=== PATIENT | male | born 1975 | race Caucasian/White ===

== ENCOUNTER → 2017-04-08 12:44 | Outpatient (CLI) | payer MEDICAID ==
[2016-01-30 10:19] VITALS: BMI 41.9
[~2017-04-08 12:44] MED LIST: CYCLOBENZAPRINE10 MG PO; OMEPRAZOLE20 M1 PO; OXY IR30 MG PO; VIMOVO 500-201 EACH PO
== END | disposition home or self-care (01) ==
LOC: D.RAD 03-30 09:00 → D.CT 03-31 08:30 → D.RAD 03-31 08:30 → D.CT 03-31 09:30 → D.RAD 12:44
DX: T84.84XA Pain due to internal orthopedic prosthetic devices, implants and grafts, initial encounter (principal)

== ENCOUNTER 2017-05-12 07:31 | Day surgery (SDC) | payer MEDICAID ==
[~2017-05-12] VITALS: Ht 180.3 cm; Wt 99.8 kg
[~2017-05-12 07:31] MED LIST changes: +GLUCOPHAGE500 MG PO; +GLUCOTROL ER2.5 MG PO; +LIDOCAINE 5 % O35 GM TOPICAL; +NEURONTIN250 MG/5 M
[2017-05-12 08:18] LABS: HEMATOCRIT 38.8 % (42.0-54.0); HEMOGLOBIN 13.2 g/dL (13.5-17.5); MCH 31.5 pg (26.0-34.0); MCV 92.6 fL (80.0-100.0); MEAN PLATELET VOLUME 9.8 fL (7.4-10.4); RBC 4.19 10x6/uL (4.20-6.10); RDW 12.1 % (11.5-14.5); WBC 8.5 10x3/uL (4.8-10.8)
[2017-05-12 08:20] VITALS: BP 122/68; Ht 180.3 cm; Wt 99.8 kg
[2017-05-12] MEDS ORDERED: ARTHROTEC 501 TAB.EC PO (08:20)
[2017-05-12 08:29] LABS: CALC OSMOLALITY 286 mosm/kg (275-300); CALCIUM 8.5 mg/dL (8.5-10.1); CARBON DIOXIDE 26.8 mmol/L (21.0-32.0); CHLORIDE - SERUM 109 mmol/L (98-107); CREATININE - SERUM 1.1 mg/dL (0.6-1.3); GLUCOSE 123 mg/dL (74-106); POTASSIUM - SERUM 3.9 mmol/L (3.5-5.1); SODIUM 143 mmol/L (136-145); UREA NITROGEN 14 mg/dL (7-18); eGFR NON AFRICAN AMERICAN 78 mL/min (90-120)
--- NOTE | 2017-05-12 08:55 | NUR ---
0855 PATIENT REFUSED TO TAKE TYLENOL DUE TO STOMACH ISSUES
[2017-05-12] MEDS ORDERED: HYDROCODONE-APA1 TAB PO ×2 (11:52→11:53)
--- NOTE | 2017-05-12 14:15 | NUR ---
1330 IV DC WITH CATHER TIP INTACT
--- NOTE | 2017-05-12 14:30 | NUR ---
STILL WAITING ON RUDDER TO CHANGE RX
--- NOTE | 2017-06-13 17:27 | OP ---
PATIENT NAME: HONORIO MILLER MEDICAL RECORD: [id number] :75 LOCATION:[facility] ADMISSION DATE: SURGEON: DAVID SHULTZ MD DATE OF OPERATION: 05/12/2017 PREOPERATIVE DIAGNOSIS: Painful left shoulder hardware. POSTOPERATIVE DIAGNOSIS: Painful left shoulder hardware. PROCEDURE: Removal of painful left shoulder hardware. SURGEON: David Shultz MD. ANESTHESIA: General. INTRAOPERATIVE COMPLICATIONS: None. SUMMARY OF PATHOLOGIC FINDINGS: Essentially none. The shoulder hardware was perhaps a bit proud, but the fracture was well healed. OPERATIVE SUMMARY IN DETAIL: After obtaining the appropriate preoperative orthopedic surgery consent as well as anesthetic consultation, evaluation and clearance, the patient was brought to the operating room and placed on the operating table in supine position. After adequate general laryngeal mask was administered, the patient was placed in the beach chair position. All pressure points were well padded. He was held firmly to the operating table using the vacuum pack suction system. Previously utilized incision was utilized again. A care was taken to avoid neurovascular structures. The plate was dissected free on its entirety and serial and sequential removal of the hardware was done followed by removal of the plane. Wound was then copiously irrigated. The deltoid fascia was closed with #1 Vicryl. This was followed by 2-0 Vicryl and skin gale. Sterile dressings were applied. The patient was awakened, taken to recovery room in stable condition. All final needle and sponge counts were correct. TRANSINT:[id number] Voice Confirmation ID: [id number] DOCUMENT ID: [id number] DAVID SHULTZ MD at 1727 CC: [id number] DICTATION DATE: 06/13/17 1057 BUSINESS TRAVEL CONSULTANT: 06/13/17 1208 [facility] 05/12/17 [place] [id number] [place] [id number]
== END 2017-05-12 14:31 | disposition home or self-care (01) ==
LOC: D.OPS 07:31 → D.PAN 11:45 → D.OPS 12:15 → D.PAN 16:30
PROVIDERS: Anesthesiology
DX: T84.9XXA Unspecified complication of internal orthopedic prosthetic device, implant and graft, initial encounter (principal); F17.200 Nicotine dependence, unspecified, uncomplicated; E11.9 Type 2 diabetes mellitus without complications; K21.9 Gastro-esophageal reflux disease without esophagitis; E66.9 Obesity, unspecified; Z68.30 Body mass index [BMI] 30.0-30.9, adult; Z01.812 Encounter for preprocedural laboratory examination

== ENCOUNTER → 2017-07-12 08:40 | Outpatient (CLI) | payer MEDICAID ==
[2017-05-12 08:20] VITALS: BMI 30.7
[~2017-07-12 08:40] MED LIST changes: +ARTHROTEC 501 TAB.EC PO; +HYDROCODONE-APA1 TAB PO
== END | disposition home or self-care (01) ==
LOC: D.MRI 07-07 10:30
DX: S83.231A Complex tear of medial meniscus, current injury, right knee, initial encounter (principal)

== ENCOUNTER → 2018-03-28 13:36 | Outpatient (CLI) | payer MEDICAID ==
[2017-05-12 08:20] VITALS: BMI 30.7
[2018-03-28 14:30] LABS: BASOPHILS 0.3 % (0-2); HEMATOCRIT 42.4 % (42.0-54.0); HEMOGLOBIN 14.7 g/dL (13.5-17.5); IMMATURE GRANULOCYTES 0.2 % (0-5); LYMPHOCYTES 22.6 % (15-50); MCH 31.8 pg (26.0-34.0); MCHC 34.7 g/dL (31.0-37.0); MCV 91.8 fL (80.0-100.0); MEAN PLATELET VOLUME 10.4 fL (7.4-10.4); NEUTROPHILS 68.9 % (40-80); PLATELET COUNT 200 10x3/uL (130-400); RBC 4.62 10x6/uL (4.20-6.10); RDW 12.7 % (11.5-14.5); WBC 10.6 10x3/uL (4.8-10.8)
[2018-03-28 14:45] LABS: C-REACTIVE PROTEIN 0.3 mg/dL (0.0-0.9); URIC ACID 5.3 mg/dL (2.6-7.2)
[2018-03-28 15:55] LABS: ERYTHROCYTE SEDIMENTATION RATE 8 mm/hr (0-15)
== END | disposition home or self-care (01) ==
LOC: D.LABREF 13:36
PROVIDERS: Orthopaedic Surgery
DX: M25.512 Pain in left shoulder (principal)

== ENCOUNTER 2018-06-29 08:10 | Day surgery (SDC) | payer MEDICAID ==
[2018-06-28 09:14] LABS: HEMOGLOBIN 13.4 g/dL (13.5-17.5); MCH 32.1 pg (26.0-34.0); MCHC 34.4 g/dL (31.0-37.0); MCV 93.5 fL (80.0-100.0); MEAN PLATELET VOLUME 9.7 fL (7.4-10.4); RBC 4.17 10x6/uL (4.20-6.10); RDW 12.9 % (11.5-14.5); WBC 10.8 10x3/uL (4.8-10.8)
[2018-06-28 09:36] LABS: CALC OSMOLALITY 280 mosm/kg (275-300); CALCIUM 8.5 mg/dL (8.5-10.1); CARBON DIOXIDE 30.4 mmol/L (21.0-32.0); CHLORIDE - SERUM 104 mmol/L (98-107); CREATININE - SERUM 0.8 mg/dL (0.6-1.3); GLUCOSE 121 mg/dL (74-106); POTASSIUM - SERUM 4.2 mmol/L (3.5-5.1); SODIUM 140 mmol/L (136-145); UREA NITROGEN 14 mg/dL (7-18); eGFR NON AFRICAN AMERICAN > 90 mL/min (90-120)
[~2018-06-29] VITALS: Ht 180.3 cm; Wt 120.2 kg
--- NOTE | ~2018-06-29 | OP ---
PATIENT NAME: HONORIO MILLER MEDICAL RECORD: [id number] :75 LOCATION:[facility] ADMISSION DATE: SURGEON: DAVID SHULTZ MD DATE OF OPERATION: 06/29/2018 PREOPERATIVE DIAGNOSIS: Retained painful hardware, left hand ring finger. POSTOPERATIVE DIAGNOSIS: The pin had fallen out between the clinic and the OR today. PROCEDURE: None. SURGEON: David Shultz MD ANESTHESIA: General. INDICATIONS: Mr. Miller is a 42-year-old gentleman who had had a crush injury to his hand several years ago. He came to my clinic with a pin protruding from the skin that was very painful, yet it was not removable at the time. He was scheduled for pin removal under anesthesia per his request. He was brought in today and the pin was not protruding out of the skin. We went to the operating room, and under fluoroscopy, the pin had fallen out already. His report was that it went back into his skin. There was no evidence of infection and no evidence of foreign body, so no surgery was done. OPERATIVE SUMMARY IN DETAIL: After obtaining the appropriate preoperative orthopaedic surgery consent as well as anesthetic consultation, evaluation, and clearance, the patient was brought to the operating room and placed on the operating table in the supine position. After general laryngeal mask was administered, tourniquet was placed about the proximal aspect of the left upper extremity. Left upper extremity was then prepped and draped in routine sterile fashion. Arm was elevated, exsanguinated, and tourniquet was inflated to 250 mmHg. At this point, fluoroscopy was brought in, and on all planes, there was no hardware seen in any portion of the arm, hand, or finger. I immediately went to PACS system and looked up his x-rays from his clinic appointment 10-14 days prior and there was clearly a pin in his finger. At this point, case was terminated. Tourniquet was deflated. The patient was awakened and taken to recovery room in stable condition. I discussed the findings with his . Although the patient thought the pin went back in his finger, it must have fallen out. TRANSINT:[id number] Voice Confirmation ID: [id number] DOCUMENT ID: [id number] CARRINGTON DUNN, DAVID GRECO at 1822 CC: [id number] DICTATION DATE: 06/29/18 1007 WOMEN'S APPAREL SALESPERSON: 06/29/18 1204 [facility] [place] 06/29/18 [facility] [address] [place] [address]
[~2018-06-29 08:10] MED LIST changes: +MOBIC7.5 MG PO
[2018-06-29 08:44] VITALS: BP 135/89; Ht 180.3 cm; Wt 120.2 kg
== END 2018-06-29 11:30 | disposition home or self-care (01) ==
LOC: D.OPS 08:10 → D.PAN 11:30 → D.OPS 11:30 → D.PAN 14:00
PROVIDERS: Anesthesiology
DX: T84.84XA Pain due to internal orthopedic prosthetic devices, implants and grafts, initial encounter (principal); Z01.812 Encounter for preprocedural laboratory examination; Z53.8 Procedure and treatment not carried out for other reasons

== ENCOUNTER → 2019-02-20 10:05 | Outpatient (CLI) | payer MEDICAID ==
[~2019-02-20 10:05] MED LIST changes: +LISINOPRIL10 MG PO
== END | disposition home or self-care (01) ==
LOC: D.MRI 10:05
DX: M54.2 Cervicalgia (principal)

== ENCOUNTER 2019-04-19 05:35 | Day surgery (SDC) | payer MEDICAID ==
--- NOTE | 2019-04-17 11:30 | NUR ---
DR. REESE NOTIFIED AND REVIEWED PT'S BEHAVIOR AND ASSESSMENT RESULTS. PT IS A LOW RISK PER DR. REESE. DR. REESE STATED TO GIVE RESOURCES TO PT AT TIME OF DISCHARGE. NO FURTHER ORDERS AT THIS TIME. RESOURCES REVIEWED WITH PT AND HE VERBALIZED UNDERSTANDING.
[2019-04-17 12:02] LABS: HEMATOCRIT 41.3 % (42.0-54.0); HEMOGLOBIN 14.3 g/dL (13.5-17.5); MCH 31.6 pg (26.0-34.0); MCHC 34.6 g/dL (31.0-37.0); MCV 91.2 fL (80.0-100.0); MEAN PLATELET VOLUME 9.5 fL (7.4-10.4); RBC 4.53 10x6/uL (4.20-6.10); RDW 12.9 % (11.5-14.5); WBC 11.8 10x3/uL (4.8-10.8)
[2019-04-17 12:35] LABS: CALC OSMOLALITY 284 mosm/kg (275-300); CALCIUM 9.3 mg/dL (8.5-10.1); CARBON DIOXIDE 27.4 mmol/L (21.0-32.0); CHLORIDE - SERUM 102 mmol/L (98-107); CREATININE - SERUM 0.8 mg/dL (0.6-1.3); GLUCOSE 130 mg/dL (74-106); POTASSIUM - SERUM 3.6 mmol/L (3.5-5.1); SODIUM 141 mmol/L (136-145); UREA NITROGEN 19 mg/dL (7-18); eGFR NON AFRICAN AMERICAN > 90 mL/min (90-120)
[~2019-04-19] VITALS: Ht 180.3 cm; Wt 125.2 kg
[2019-04-19] VITALS (19 sets, daily range): BP systolic 106–136; BP diastolic 69–91; Ht 180.3 cm; Wt 125.2 kg
[2019-04-19] MEDS ORDERED: CYCLOBENZAPRINE10 MG PO (06:25)
--- NOTE | 2019-04-19 12:37 | NUR ---
REPORT RECEIVED. PATIENT ASSESSMENT COMPLETED. PATIENT ON 2 L NC. VITAL SIGNS STABLE. WILL CONTINUE ICE CHIPS. BED LOW AND LOCKED IN POSITION. [facility] WILL CONTINUE TO MONITOR.
--- NOTE | 2019-04-19 15:34 | NUR ---
PATIENT SEDATED. ORAL CARE PROVIDED. COMPLETE LINEN CHANGE. PATIENT TURNED AND COMPLETE BATH. ALL TUBING SIGNED AND DATED. ALL IV SITES SIGNED AND DATED. VSS. WILL CONTINUE TO MONITOR.
--- NOTE | 2019-04-19 17:04 | NUR ---
PATIENT EATING DINNER. PATIENT TOLERATED CLEAR LIQUID. PATIENT CONSUMED 600ML. PATIENT STATES O/10 PAIN. PATIENT IS ALERT AND ORIENTED X4. SHIFT REASSESMENT COMPLETED AND NO CHANGES NOTED. VSS. BED LOW AND LOCKED IN POSITION. REMINDED PATIENT TO NOT LIFT OR TURN NECK. WILL CONTINUE TO MONITOR.
--- NOTE | 2019-04-19 19:00 | NUR ---
REPORT RECEIVED, CARE ASSUMED. PT IS LAYING IN BED AT THIS TIME WITH EYES CLOSED. NO NEEDS VOICED/NOTED. INITIAL ASSESSMENT COMPLETED, SEE FLOWSHEET FOR DETAILS. NO SIGNS OF ACUTE DISTRESS. WILL CONTINUE TO MONITOR.
--- NOTE | 2019-04-19 21:00 | NUR ---
PT IS RESTING IN BED WITH EYES CLOSED. NO SIGNS OF ACUTE DISTRESS. NO NEEDS VOICED AT THIS TIME. WILL CONTINUE TO MONITOR.
--- NOTE | 2019-04-19 23:00 | NUR ---
REASSESSMENT COMPLETED, SEE FLOWSHEET FOR DETAILS. PT IS LAYING IN BED WITH EYES CLOSED AT THIS TIME. NO SIGNS OF ACUTE DISTRESS. WILL CONTINUE TO MONITOR.
[2019-04-20] VITALS (7 sets, daily range): BP systolic 101–128; BP diastolic 73–85
--- NOTE | 2019-04-20 01:00 | NUR ---
PT IS LAYING IN BED WITH EYES CLOSED AT THIS TIME. PT DENIES NEEDS. NO SIGNS OF ACUTE DISTRESS NOTED. WILL CONTINUE TO MONITOR.
--- NOTE | 2019-04-20 03:00 | NUR ---
REASSESSMENT COMPLETED, SEE FLOWSHEET FOR DETAILS. PT IS LAYING IN BED WITH EYES CLOSED AT THIS TIME. NO SIGNS OF ACUTE DISTRESS. WILL CONTINUE TO MONITOR.
--- NOTE | 2019-04-20 05:00 | NUR ---
PT IS LAYING IN BED WITH EYES CLOSED AT THIS TIME. NO SIGNS OF ACUTE DISTRESS. WILL CONTINUE TO MONITOR.
--- NOTE | 2019-04-20 07:31 | NUR ---
REPORT RECIEVED. PATIENT ALERT AND ORIENTED X4. ASSESSMENT COMPLETED. PATIENT RATED PAIN OF 2/10. PATIENT REQUESTED MED FOR PAIN RELIEF. BED LOW AND LOCKED IN POSITION. CALL LIGHT WITHIN REACH.
--- NOTE | 2019-04-20 09:00 | NUR ---
DR HE AT [facility] DISCHARGE ORDERS GIVEN
--- NOTE | 2019-04-20 10:14 | NUR ---
PATIENT DISCHARGED WITH
--- NOTE | 2019-05-10 13:38 | OP ---
PATIENT NAME: HONORIO MILLER MEDICAL RECORD: [id number] :75 LOCATION:[facility] ADMISSION DATE: SURGEON: NADER HE MD DATE OF OPERATION: 04/19/2019 PREOPERATIVE DIAGNOSES: Osteophyte formation and disc herniation at C5-C6 and C6-C7, cervical. POSTOPERATIVE DIAGNOSES: Osteophyte formation and disc herniation at C5-C6 and C6-C7, cervical. PROCEDURES: Anterior cervical discectomy and fusion at C5-C6 and C6-C7 with removal of osteophytes and decompression of the C6 and C7 nerve roots bilaterally. PEEK interbody cages, separate anterior cervical plate and screws, Madai bone stem cells allograft. DESCRIPTION OF TECHNIQUE: After induction of general endotracheal anesthesia, the patient was positioned supine on the operating table. Neck was prepped and draped in usual sterile fashion. Fluoroscopic x-ray and freer localized the C5-C6 interspace. After infiltration of 1:100,000 epinephrine with 1% lidocaine, a transverse skin incision was carried out from the midline to the sternocleidomastoid muscle. The platysma was divided with Bovie cautery. Using blunt and sharp dissection with Metzenbaum scissors, I proceeded in avascular plane medial to the carotid sheath. The C5-C6 interspace was identified with fluoroscopic x-ray and a spinal needle. The longus colli muscles were elevated by the C5, C6, and C7. Self-retaining retractors were placed deep to the longus colli muscles. [place] distracting pins were placed by the C5, C6, and C7. Disc material was removed from C5-C6 and C6-C7 with a combination of pituitary rongeurs and curettes. Osteophytes were drilled away posteriorly at C5-C6 and C6-C7 under microscopic illumination. A 2-mm Cloward rongeur was used to remove the posterior longitudinal ligament. Following this, the dura was decompressed well. A separate PEEK interbody cage was placed in each interspace of C5-C6 and C6-C7. Prior to this, it was filled with Madai Bone allograft. Next, a separate anterior cervical plate and screws was used to span the C5, C6 and C7 interspaces. Self-drilling screws were placed through the holes in the plate. Locking cams were tightened down over the screw heads. Good position of the hardware was confirmed with fluoroscopic x-ray. Meticulous hemostasis was maintained throughout the wound. The wound was irrigated with copious amounts of Ancef irrigant solution. The platysma was closed with interrupted 2-0 Vicryl suture. The subdermal layer was closed with 3-0 Vicryl suture. The skin was reapproximated with Steri-Strips and benzoin. A sterile dressing was applied to the wound. The patient was awakened in good condition and taken to recovery. All counts were reported as correct. Estimated blood loss was minimal. TRANSINT:[id number] Voice Confirmation ID: [id number] DOCUMENT ID: [id number] NADER HE MD at 1338 CC: [id number] DICTATION DATE: 05/09/19 1445 CORE FINISHER: 05/09/19 1610 [facility] 04/20/19 [place] [id number] [place] [address]
== END 2019-04-20 10:16 | disposition home or self-care (01) ==
LOC: D.OPS 05:35 → D.PAN 07:30 → D.ICU 11:35 → D.OPS 04-20 10:16
PROVIDERS: Anesthesiology; ATTEND Neurological Surgery
DX: M50.00 Cervical disc disorder with myelopathy, unspecified cervical region (principal); M25.78 Osteophyte, vertebrae

== ENCOUNTER 2019-10-25 07:07 | Day surgery (SDC) | payer MEDICAID ==
[2019-10-23 13:25] LABS: CALC OSMOLALITY 281 mosm/kg (275-300); CALCIUM 8.3 mg/dL (8.5-10.1); CARBON DIOXIDE 32.6 mmol/L (21.0-32.0); CHLORIDE - SERUM 104 mmol/L (98-107); GLUCOSE 121 mg/dL (74-106); POTASSIUM - SERUM 3.8 mmol/L (3.5-5.1); SODIUM 140 mmol/L (136-145); UREA NITROGEN 17 mg/dL (7-18); eGFR NON AFRICAN AMERICAN 86 mL/min (90-120)
[2019-10-23 13:28] LABS: HEMATOCRIT 42.1 % (42.0-54.0); HEMOGLOBIN 14.2 g/dL (13.5-17.5); MCH 31.6 pg (26.0-34.0); MCHC 33.7 g/dL (31.0-37.0); MCV 93.8 fL (80.0-100.0); MEAN PLATELET VOLUME 9.2 fL (7.4-10.4); RBC 4.49 10x6/uL (4.20-6.10); RDW 12.8 % (11.5-14.5); WBC 10.7 10x3/uL (4.8-10.8)
[2019-10-25] VITALS (12 sets, daily range): BP systolic 119–160; BP diastolic 70–93; Ht 180.3 cm; Wt 120.5 kg
[~2019-10-25] VITALS: Ht 180.3 cm; Wt 120.5 kg
[~2019-10-25 07:07] MED LIST changes: +GLUCOPHAGE1000 MG PO; -GLUCOPHAGE500 MG PO
--- NOTE | 2019-10-25 10:50 | NUR ---
BETADINE OINTMENT USED AT SKULL PIN SITES
--- NOTE | 2019-10-25 10:54 | NUR ---
1041 RECIEVED PATIENT AROUSABLE, RESPONDS TO VERBAL COMMANDS. MOVING ALL EXTREMITIES. GOOD STRONG BILATERAL HAND PARKING ENFORCEMENT TECHNICIAN.
--- NOTE | 2019-10-25 11:21 | NUR ---
PT ARRIVES TO ROOM VIA BED ESCORTED BY RECOVERY ROOM STAFF. PT IS AAO X 4. INCISION NOTED TO BACK OF NECK INBETWEEN SHOULDER BLADES. 5 SAL COUNTED. UNECURED DRESSING NOTED. NO DRAINAGE. PT REPORTS PAIN TO LEFT/RIGHT SIDE OF HEAD BUT DENIES PRESENCE OF N/V/DYSPNEA. INCENTIVE SPIROMETER AT BEDSIDE. EDUCATION GIVEN. PT VERBALIZES UNDERSTANDING. SCDS ARE ON BILATERAL AND WORKING. FREQUENT VITALS SET UP. SEE FLOWHSEET. BED IS IN THE LOWEST POSITION. CALL LIGHT AND BEDSIDE TABLE ARE WITHIN REACH. SIDE RAILS X2. PT DENIES FURTHER NEEDS. WILL CONT TO MONITOR.
--- NOTE | 2019-10-25 12:57 | NUR ---
CALL PLACED TO MATERIALS FOR SOFT CERVICAL COLLAR.
--- NOTE | 2019-10-25 21:30 | NUR ---
A/O WITH NO SIGNS OF DISTRESS. IV TO THE LT AC WITH NO REDNESS OR SWELLING NOTED. DRESSING NOTED TO THE TOP OF BACK, COVERING 5 SAL. DRESSING CHANGE PROVIDED DUE TO SATURATED IN BLOOD. SITE IS CLEAN AND FREE OF SWELLING OR REDNESS. REPORTS 5/10 PAIN. PRN MEDS ADMIN. SIGNIFICANT OTHER AT BEDSIDE. DENIES NO OTHER NEEDS AT THIS TIME. CONTINUE PLAN OF CARE
--- NOTE | 2019-10-25 21:30 | NUR ---
A/O WITH NO SIGNS OF ACUTE DISTRESS. IV TO THE RT HAND WITH NO REDNESS OR SWELLING NOTED. WOUND VAC NOTED TO THE LT LEG, PULSES PALP. REPORTS 10/10 PAIN IN LT LEG. PRN SENIOR SQL SERVER DEVELOPER. YANELY ALARM ON. DENIES NO OTHER NEEDS AT THIS TIME. CONTINUE PLAN OF CARE.
[2019-10-26] VITALS: BP 114/70
[2019-10-26 04:00] VITALS: BP 124/73
--- NOTE | 2019-10-26 08:41 | NUR ---
IN ROOM. NO NEEDS AT THIS TIME. EASILY AWOKEN. CALL IN REACH. WCTM
[2019-10-26 09:02] VITALS: BP 110/66
[2019-10-26] MEDS ORDERED: NEURONTIN600 MG PO (12:54)
[2019-10-26] MEDS ORDERED: PERCOCET 10-321 EAC1 PO (12:56)
[2019-10-26] MEDS ORDERED: MEDROL DOSE PACK4 MG PO (12:57)
[2019-10-26 13:25] VITALS: BP 104/62
--- NOTE | 2019-10-26 15:01 | NUR ---
DISCHARGE INSTRUCTIONS GIVEN. PATIENT VERBALIZED UNDERSTANDING. IV THERAPY DC'ED FROM LEFT AC WITH TIP INTACT. REFUSED WHEELCHAIR DOWN TO FRONT.
--- NOTE | 2019-11-06 12:48 | OP ---
PATIENT NAME: HONORIO MILLER MEDICAL RECORD: [id number] :75 LOCATION:[facility] ADMISSION DATE: SURGEON: NADER MARCELO MD DATE OF OPERATION: 10/25/2019 DATE OF SERVICE: 10/25/2019 PREOPERATIVE DIAGNOSIS: Left C6 and C7 radiculopathy secondary to a foraminal stenosis at C5-C6 and C6-C7, left. PROCEDURE: Left posterior cervical foraminotomy at C5-C6 and C6-C7, left. SURGEON: Nader Marcelo MD DESCRIPTION AND TECHNIQUE: After induction of general endotracheal anesthesia, the patient was placed in Brown head pins, rolled prone on chest and hip rolls. After sterile prep and drape of the posterior neck, a fluoroscopic x-ray and spinal needle localized the C5-C6 interspace on the left side. After infiltration of 1:100,000 epinephrine and 1% lidocaine, a skin incision was carried out from the spinous process of C5-C7. The fascia was incised with Bovie cautery. Using a subperiosteal dissection, the spinous process and lamina of C5, C6, C7 were exposed as well as facets on the left side at C5-C6 and C6-C7. Level was confirmed with fluoroscopic x-ray of C5-C6. A microscope and Midas José Miguel drill were used to perform a medial facetectomy, foraminotomy at C5-C6 and C6-C7. Hypertrophied ligamentum flavum was removed with Cloward rongeurs. Following this, the nerve root at the C6 and C7 were identified and found to be completely decompressed. Meticulous hemostasis was maintained throughout the wound. Wound was irrigated with copious amounts of Ancef irrigant solution. The fascia was closed with 2-0 Vicryl suture, the subdermal layer was closed with 3-0 Vicryl suture. The skin was closed with gale. A sterile dressing was applied to the wound. The patient was awakened in good condition and taken to recovery. All counts were reported as correct. Estimated blood loss was minimal. TRANSINT:[id number] Voice Confirmation ID: [id number] DOCUMENT ID: [id number] NADER MARCELO MD at 1248 CC: [id number] DICTATION DATE: 11/06/1941 YOUTH SERVICES SPECIALIST: 11/06/[address] [facility] 10/26/19 [facility] [address] [place] [address]
== END 2019-10-26 15:04 | disposition home or self-care (01) ==
LOC: D.SDCHOLD 07:07 → D.OPS 07:07 → D.MS 07:07 → D.SDCHOLD 07:30 → EDSTATUS 07:30 → D.SDCHOLD 10:59 → D.MS 10:59 → D.OPS 10-26 15:04 → D.MS 10-26 15:04
PROVIDERS: Anesthesiology; ATTEND Neurological Surgery
DX: M54.12 Radiculopathy, cervical region (principal); J45.909 Unspecified asthma, uncomplicated; E11.9 Type 2 diabetes mellitus without complications; I10 Essential (primary) hypertension